=== PATIENT | female | born 1995 | race Caucasian/White ===

== ENCOUNTER 2017-05-03 10:24 | Emergency (ER) | payer OTHER ==
[~2017-05-03] VITALS: Ht 160 cm; Wt 112.5 kg
[~2017-05-03 10:24] MED LIST: ACETAMINOPHEN325 M1 PO; BIRTH CONTROL PILLS; CITALOPRAM HBR20 MG PO; COLACE100 MG PO; GUAIFENESIN-CO118 ML PO; HYDROCODON-ACE1 EA10 PO; IBUPROFEN800 MG PO; NASAL DECONGEST30 MG PO; OMEPRAZOLE20 MG PO; ORTHO TRI-CYCL1 EAC1 PO; PAROXETINE HCL10 MG PO; ULTRAM50 MG PO; ZITHROMAX250 MG PO
== END 2017-05-03 11:45 | disposition home or self-care (01) ==
LOC: ED 10:24
DX: Z00.8 Encounter for other general examination (principal)

== ENCOUNTER 2017-05-14 04:24 | Emergency (ER) | payer OTHER ==
[~2017-05-14] VITALS: Ht 160 cm; Wt 112.5 kg
== END 2017-05-14 20:59 ==
LOC: ED 04:24
DX: F15.929 Other stimulant use, unspecified with intoxication, unspecified (principal); F32.9 Major depressive disorder, single episode, unspecified; K21.9 Gastro-esophageal reflux disease without esophagitis; F41.9 Anxiety disorder, unspecified; F43.10 Post-traumatic stress disorder, unspecified; F17.200 Nicotine dependence, unspecified, uncomplicated; Z90.49 Acquired absence of other specified parts of digestive tract; Z88.8 Allergy status to other drugs, medicaments and biological substances
CPT/HCPCS: 36415; 80053; 80176; 81001; 84443; 84703; 85025; 87077; 87088; 87186; 99284; G0480

== ENCOUNTER 2020-02-12 23:12 | Emergency (ER) | payer BC ==
[~2020-02-12] VITALS: Ht 160 cm; Wt 113.4 kg
[~2020-02-12 23:12] MED LIST changes: +ADVIL200 MG PO; +BUSPIRONE HCL5 MG PO; +KEFLEX500 MG PO; +PROZAC20 MG PO
--- OUTSIDE RECORDS SUMMARY | 2020-02-12 23:14 | XMS ---
PreManage Notification: [employer] Events No recent Security Events currently on file CRITERIA MET - [facility] - 2 Visits in 30 Days CARE PROVIDERS There are no care providers on record at this time. Sushma has no Care Guidelines for this patient. Shila VISIT COUNT (12 MO.) [facility] T[facility] NOTE: Visits indicate total known visits. ED/C VISIT TRACKING (12 MO.) 02/12/2020 23:13 [facility] [place] TYPE: Emergency COMPLAINT: - DOG BITE 01/25/2020 13:08 [facility] [place] TYPE: Emergency COMPLAINT: - URINE PROBLEM DIAGNOSES: - Gastro-esophageal reflux disease without esophagitis - Anxiety disorder, unspecified - Cystitis, unspecified without hematuria - Other terminal carman (current) drug therapy - Nicotine dependence, unspecified, uncomplicated - Major depressive disorder, single episode, unspecified - Allergy status to other anti-infective agents status - Dysuria INPATIENT VISIT TRACKING (12 MO.) No inpatient visits to display in this time frame [email or web address]
[2020-02-13] MEDS ORDERED: AUGMENTIN 875-1 EACH PO (00:46)
== END 2020-02-13 01:58 | disposition home or self-care (01) ==
LOC: ED 23:12
DX: S61.452A Open bite of left hand, initial encounter (principal); S61.412A Laceration without foreign body of left hand, initial encounter; K21.9 Gastro-esophageal reflux disease without esophagitis; F41.9 Anxiety disorder, unspecified; F32.9 Major depressive disorder, single episode, unspecified; F17.200 Nicotine dependence, unspecified, uncomplicated; Z88.3 Allergy status to other anti-infective agents; Z79.899 Other long term (current) drug therapy; W54.0XXA Bitten by dog, initial encounter
CPT/HCPCS: 73130; 96365; 99283-25; J0295

== ENCOUNTER 2021-09-15 17:51 | Emergency (ER) | payer OTHER ==
[~2021-09-15] VITALS: Ht 162.6 cm; Wt 118.1 kg
[~2021-09-15 17:51] MED LIST changes: +AUGMENTIN 875-1 EACH PO
[2021-09-15] MEDS ORDERED: METHOCARBAMOL750 MG PO (20:28)
== END 2021-09-15 20:44 | disposition home or self-care (01) ==
LOC: ED 17:51
DX: S39.012A Strain of muscle, fascia and tendon of lower back, initial encounter (principal); X50.0XXA Overexertion from strenuous movement or load, initial encounter; Y99.0 Civilian activity done for income or pay; K21.9 Gastro-esophageal reflux disease without esophagitis; F17.200 Nicotine dependence, unspecified, uncomplicated; Z88.8 Allergy status to other drugs, medicaments and biological substances
CPT/HCPCS: 72100; 81001; 84703; 99283-25

== ENCOUNTER 2022-09-12 22:06 | Emergency (ER) | payer OTHER ==
[~2022-09-12] VITALS: Ht 162.6 cm; Wt 133.0 kg
[~2022-09-12 22:06] MED LIST changes: +METHOCARBAMOL750 MG PO
== END 2022-09-12 23:16 | disposition home or self-care (01) ==
LOC: ED 22:06
DX: J06.9 Acute upper respiratory infection, unspecified (principal); K21.9 Gastro-esophageal reflux disease without esophagitis; F17.200 Nicotine dependence, unspecified, uncomplicated; Z88.8 Allergy status to other drugs, medicaments and biological substances; Z20.822 Contact with and (suspected) exposure to COVID-19
CPT/HCPCS: 87502; 87880; 99283; U0003

== ENCOUNTER 2025-02-14 18:10 | Emergency (ER) | payer OTHER ==
[~2025-02-14] VITALS: Ht 162.6 cm; Wt 111.6 kg
[2025-02-14] MEDS ORDERED: IBUPROFEN 800 MG TAB PO ONE (20:15)
[2025-02-14 20:24] VITALS: BP 120/77
== END 2025-02-14 20:24 | disposition home or self-care (01) ==
LOC: ED 18:10
DX: S46.012A Strain of muscle(s) and tendon(s) of the rotator cuff of left shoulder, initial encounter (principal); K21.9 Gastro-esophageal reflux disease without esophagitis; F43.10 Post-traumatic stress disorder, unspecified; F17.200 Nicotine dependence, unspecified, uncomplicated; Z88.8 Allergy status to other drugs, medicaments and biological substances; X50.0XXA Overexertion from strenuous movement or load, initial encounter
CPT/HCPCS: 73030; 99283; A9270